=== PATIENT | female | born 1965 | race Caucasian/White ===

== ENCOUNTER 2017-12-13 20:39 | Emergency (ER) | payer OTHER ==
[~2017-12-13] VITALS: Ht 160 cm; Wt 87.1 kg
[2017-12-13 21:09] VITALS: Ht 160 cm; Wt 87.1 kg
[2017-12-13 22:19] VITALS: BP 142/97
== END 2017-12-13 22:19 | disposition home or self-care (01) ==
LOC: ED 20:39
DX: B35.6 Tinea cruris (principal); G89.29 Other chronic pain; M54.5 Low back pain; I10 Essential (primary) hypertension; Z90.710 Acquired absence of both cervix and uterus
CPT/HCPCS: 82962

== ENCOUNTER 2020-05-02 20:38 | Emergency (ER) | payer MEDICAID ==
[~2020-05-02] VITALS: Ht 160 cm; Wt 81.6 kg
[2020-05-02 20:39] VITALS: BP 157/94; Ht 160 cm; Wt 81.6 kg
== END 2020-05-02 22:05 | disposition home or self-care (01) ==
LOC: ED 20:38
DX: J06.9 Acute upper respiratory infection, unspecified (principal); I10 Essential (primary) hypertension; Z90.710 Acquired absence of both cervix and uterus; Z98.51 Tubal ligation status; Z98.890 Other specified postprocedural states

== ENCOUNTER 2020-05-07 17:58 | Emergency (ER) | payer MEDICAID, SELFPAY ==
[~2020-05-07] VITALS: Ht 160 cm; Wt 81.6 kg
[2020-05-07 18:25] VITALS: BP 121/87; Ht 160 cm; Wt 81.6 kg
== END 2020-05-07 20:02 | disposition home or self-care (01) ==
LOC: ED 17:58
DX: R05 Cough (principal); Z20.828 Contact with and (suspected) exposure to other viral communicable diseases; R09.89 Other specified symptoms and signs involving the circulatory and respiratory systems; R06.02 Shortness of breath
CPT/HCPCS: J1100; U0003